=== PATIENT | male | born 1980 | race Hispanic/Latino ===

== ENCOUNTER 2017-07-10 16:02 | Emergency (ER) | payer OTHER, SELFPAY ==
[2017-07-10] MEDS ORDERED: predniSONE 20 MG TAB ONE (18:12)
--- NOTE | 2017-07-10 18:25 | ER ---
Nurse's Notes [facility] Name: Jaden Saldivar Age: 36 yrs Sex: Male : 1980 Arrival Date: 07/10/2017 Time: 16:07 Bed 12 Private MD: None, None Diagnosis: Allergic dermatitis of right upper eyelid Presentation: 07/10 16:08 Presenting complaint: Patient states: Pt. c/o of right eye swelling/irritation. Onset rk2 yesterday around 20:00. No visual disturbance. Pt. states that he took Benadryl last night and this morning without change. Transition of care: patient was not received from another setting of care. Onset of symptoms was July 09, 2017. Initial Sepsis Screen: Does the patient meet any 2 criteria? No. Patient's initial sepsis screen is negative. Does the patient have a suspected source of infection? No. Patient's initial sepsis screen is negative. Care prior to arrival: None. 16:08 Method Of Arrival: Ambulatory rk2 16:08 Acuity: CHELSY 4 rk2 Historical: - Allergies: 16:12 No Known Allergies; rk2 - Immunization history:: Last tetanus immunization: unknown, Pneumococcal vaccine is not up to date, Flu vaccine is not up to date. - Social history:: Smoking status: Patient uses tobacco products, smokes one-half pack cigarettes per day. Screenin:00 Abuse screen: Denies threats or abuse. Denies injuries from another. Nutritional sg screening: No deficits noted. Tuberculosis screening: No symptoms or risk factors identified. Never had TB. Fall Risk None identified. Assessment: 18:04 General: Appears in no apparent distress. comfortable, well groomed, well developed, sg well nourished, Behavior is calm, cooperative, appropriate for age. Pain: Complains of pain in right eye Pain does not radiate. Neuro: Level of Consciousness is awake, alert, obeys commands, Oriented to person, place, time, Speech is normal, Facial symmetry appears normal. Cardiovascular: Heart tones S1 S2 present Capillary refill is brisk in bilateral fingers. Respiratory: Airway is patent Respiratory effort is even, unlabored, Respiratory pattern is regular, symmetrical. GI: No signs and/or symptoms were reported involving the gastrointestinal system. : No signs and/or symptoms were reported regarding the genitourinary system. EENT: Eyes are tearing on right eye Sclera/Cornea are reddened in outer aspect of conjuctiva of right eye, iris of right eye and inner aspect of conjuctiva of right eye. Derm: Skin is pink, warm \T\ dry. Musculoskeletal: No signs and/or symptoms reported regarding the musculoskeletal system. Vital Signs: 16:12 BP 178 / 117; Pulse 97; Resp 17; Temp 98.0; Pulse Ox 98% on R/A; Weight 136.08 kg; Pain rk2 0/10; ED Course: 16:07 Patient arrived in ED. mr 16:07 None, None is Private Physician. mr 16:12 Triage completed. rk2 18:00 No provider procedures requiring assistance completed. Patient did not have IV access sg during this emergency room visit. 18:00 Patient has correct armband on for positive identification. Call light in reach. Pulse sg ox on. NIBP on. 18:01 Christine Rooney FNP-C is PHCP. kb 18:01 Angel Jacobs MD is Attending Physician. kb 18:04 Guicho Galeano, RN is Primary Nurse. sg 18:30 Arm band placed on right wrist. dm5 Administered Medications: 18:13 Drug: predniSONE 60 mg Route: PO; sg Outcome: 18:24 Discharge ordered by MD. kb 18:29 Discharged to home ambulatory. em 18:29 Condition: good 18:29 Discharge instructions given to patient, Instructed on discharge instructions, follow up and referral plans. medication usage, Demonstrated understanding of instructions, follow-up care, medications, Prescriptions given X 1. 18:30 Patient left the ED. dm5 Signatures: Christine Rooney FNP-C FNP-Ckb Markwardt, Deana, RN RN dmGuicho Gomez, RN RN Lisa Wolf mr SzymanskiJuan Diego, SHAKER REPAIRER SHAKER REPAIRER em Marci Galeas, RN RN rk2
--- NOTE | 2017-07-10 18:25 | EDPHYS ---
Physician Documentation [facility] Name: Jaden Saldivar Age: 36 yrs Sex: Male : 1980 Arrival Date: 07/10/2017 Time: 16:07 Bed 12 Private MD: None, None ED Physician Angel Jacobs HPI: 07/10 18:19 This 36 yrs old Male presents to ER via Ambulatory with complaints of Eye kb Swelling. 18:19 The patient is experiencing swelling of eyelid, The patient sustained Unknown. to the kb right eye, caused by an unknown mechanism. Onset: The symptoms/episode began/occurred yesterday. Duration: the symptoms are continuous. Aggravated by nothing. Alleviated by nothing. Associated signs and symptoms: Pertinent positives: None. Pertinent negatives: None. Patient does not utilize any form of vision correction. Severity of symptoms: At their worst the symptoms were moderate in the emergency department the symptoms are unchanged. The patient has not experienced similar symptoms in the past. The patient has not recently seen a physician. Pt states he started having eyelid swelling yesterday. States he was cooking crawfish yesterday and may have rubbed his eye, but isn't sure. Denies visual disturbances. . Historical: - Allergies: 16:12 No Known Allergies; rk2 - Immunization history:: Last tetanus immunization: unknown, Pneumococcal vaccine is not up to date, Flu vaccine is not up to date. - Social history:: Smoking status: Patient uses tobacco products, smokes one-half pack cigarettes per day. ROS: 18:19 Constitutional: Negative for fever, chills, and weight loss, ENT: Negative for injury, kb pain, and discharge, Neck: Negative for injury, pain, and swelling, Cardiovascular: Negative for chest pain, palpitations, and edema, Respiratory: Negative for shortness of breath, cough, wheezing, and pleuritic chest pain, Abdomen/GI: Negative for abdominal pain, nausea, vomiting, diarrhea, and constipation, MS/Extremity: Negative for injury and deformity, Skin: Negative for injury, rash, and discoloration, Neuro: Negative for headache, weakness, numbness, tingling, and seizure. 18:19 Eyes: Positive for swelling. Exam: 18:19 Constitutional: This is a well developed, well nourished patient who is awake, alert, kb and in no acute distress. Head/Face: Normocephalic, atraumatic. ENT: Nares patent. No nasal discharge, no septal abnormalities noted. Tympanic membranes are normal and external auditory canals are clear. Oropharynx with no redness, swelling, or masses, exudates, or evidence of obstruction, uvula midline. Mucous membranes moist. Neck: Trachea midline, no thyromegaly or masses palpated, and no cervical lymphadenopathy. Supple, full range of motion without nuchal rigidity, or vertebral point tenderness. No Meningismus. Chest/axilla: Normal chest wall appearance and motion. Nontender with no deformity. No lesions are appreciated. Cardiovascular: Regular rate and rhythm with a normal S1 and S2. No gallops, murmurs, or rubs. Normal PMI, no JVD. No pulse deficits. Respiratory: Lungs have equal breath sounds bilaterally, clear to auscultation and percussion. No rales, rhonchi or wheezes noted. No increased work of breathing, no retractions or nasal flaring. Abdomen/GI: Soft, non-tender, with normal bowel sounds. No distension or tympany. No guarding or rebound. No evidence of tenderness throughout. 18:19 Eyes: Lids and lashes: edema, of the right eye. Vital Signs: 16:12 BP 178 / 117; Pulse 97; Resp 17; Temp 98.0; Pulse Ox 98% on R/A; Weight 136.08 kg; Pain rk2 0/10; MDM: 18:01 Patient medically screened. kb 18:18 Data reviewed: vital signs, nurses notes. Data interpreted: Pulse oximetry: on room air kb is 98 %. Interpretation: normal. Counseling: I had a detailed discussion with the patient and/or guardian regarding: the historical points, exam findings, and any diagnostic results supporting the discharge/admit diagnosis, the need for outpatient follow up, a family practitioner, to return to the emergency department if symptoms worsen or persist or if there are any questions or concerns that arise at home. 18:25 Counseling: I had a detailed discussion with the patient and/or guardian regarding: the kb presence of at least one elevated blood pressure reading (>120/80) during this emergency department visit. Special discussion: I have referred the patient to see his PCP for further evaluation of high blood pressure. ED course: Pt states "I know my blood pressure is high. It gets like that. I need to go to my doctor about it.". Administered Medications: 18:13 Drug: predniSONE 60 mg Route: PO; sg Disposition: 07/11 07:51 Co-signature as Attending Physician, Angel Jacobs MD I agree with the assessment and mary lou plan of care. Disposition: 07/10/17 18:24 Discharged to Home. Impression: Allergic dermatitis of right upper eyelid. - Condition is Stable. - Discharge Instructions: Allergies, [id number]. - Prescriptions for Prednisone 20 mg Oral Tablet - take 1 tablet by ORAL route once daily for 5 days; 5 tablet. - Medication Reconciliation Form, Thank You Letter, Antibiotic Education, Prescription Opioid Use form. - Follow up: Emergency Department; When: As needed; Reason: Worsening of condition. Follow up: Private Physician; When: 2 - 3 days; Reason: Recheck today's complaints, Continuance of care, Re-evaluation by your physician. Signatures: Christine Rooney, OFFENSIVE COORDINATOR-C OFFENSIVE COORDINATOR-Lucy Shipman, RN RN dm5 Guicho Galeano RN RN sg Angel Jacobs MD MD cha Kidder, Rhonda, RN RN rk2
== END 2017-07-10 18:30 | disposition home or self-care (01) ==
LOC: ER 16:02
DX: L23.9 Allergic contact dermatitis, unspecified cause (principal); F17.210 Nicotine dependence, cigarettes, uncomplicated
CPT/HCPCS: 99283; J7512